=== PATIENT | male | born 1955 | race Caucasian/White ===

== ENCOUNTER 2024-05-16 07:58 | Outpatient (RCR) | payer MEDICARE, SELFPAY ==
--- NOTE | 2024-05-18 10:16 | BUOTOPEVAL ---
Assessment and note entered by Nany Lua OT Evaluation Information Assessment Status Evaluation Diagnosis S/p ORIF fracture, left distal radius routine healing ICD-10 Condition Codes (OT) M25.532 Other ICD-10 Condition Codes ( Z98.890, Z87.81 OT) Onset February 2024 Subjective Information The patient reports 5/10 pain at its worst when moving extremity and 0/10 at best. The patient reports no pain at the time of evaluation. Reported Pain Level Pain Score 0: Self Report Assessment OT Clinical Summary The patient is a 68 year old male who was referred to outpatient OT due to distal radius fracture. The patient now demonstrates minimal edema of L wrist, limited wrist flexion, decreased automation lead strength and pain in wrist during ADLs. The patient requires skilled OT to address pain, ROM, strength and edema challenges in order to improve function of L UE and return to PLOF with independence with ADLs and IADLs with no pain. Plan of Care Interventions Therapeutic Exercise,Manual Therapy,Neuro Re- education,Therapeutic Activities,Hot Pack/Cold Pack,Electrical Stimulation,Sensory Integrative Techn,Self-Care/Home Management,Ultrasound OT Services Indicated Yes Treatment Frequency and 2x/week for 10 visits. Duration These treatments will address the objective and functional deficits as defined above. The patient will be advanced safely and appropriately in order for the patient to progress towards his/her prior level of function. Additional exercises will be introduced and as well as a comprehensive home exercise program upon discharge, if needed, ?to ensure carryover of functional gains achieved in the clinic. This treatment plan has been reviewed and agreement upon by the patient.
--- NOTE | 2024-06-07 07:45 | BUOTOPDC ---
Assessment and note entered by Nany Lua OT Evaluation Information Assessment Status Discharge Diagnosis S/p ORIF fracture, left distal radius routine healing ICD-10 Condition Codes (OT) M25.532 Other ICD-10 Condition Codes ( Z98.890, Z87.81 OT) Onset February 2024 Subjective Information The patient reports 0/10 pain in wrist at the time of discharge. He reports that at times he will have sharp pain in thumb when pulled back but goes away quickly. He reports it does not bother him very much and has no numbness or tingling. He reports he has no issues performing all ADLs and IADLs. He demonstrates good progress toward goals and understanding of HEP. Reported Pain Level Pain Score 0: Self Report Pain Score 0: Self Report Pain Score 0: Self Report Pain Score 0: Self Report Assessment OT Clinical Summary The patient demonstrates significant progress in wrist ROM, edema, pain, UE HEP knowledge and demonstration, and ward secretary strength that have made all ADLs and IADLs easier with no discomfort. He performs all ADLs with independence and does not demonstrate difficulty with limited ROM or strength of L UE. The patient has reported pain in L thumb at times when it is pulled back, therapist educated the patient on pain management techniques and bracing options if needed. Due to patient reporting that it does not bother him, therapist not to address at this time. The patient demonstrates significant progress in function scoring 2.3% on QuickDASH questionnaire at discharge. The patient is discharged this date due to meeting goals. Plan of Care Interventions Therapeutic Exercise,Manual Therapy,Neuro Re- education,Therapeutic Activities,Hot Pack/Cold Pack,Electrical Stimulation,Sensory Integrative Techn,Self-Care/Home Management,Ultrasound OT Services Indicated No Treatment Frequency and 2x/week for 10 visits. Duration
== END 2024-06-06 09:17 | disposition home or self-care (01) ==
LOC: CHSOT 07:58
PROVIDERS: PCP Family Medicine
DX: S52.572D Other intraarticular fracture of lower end of left radius, subsequent encounter for closed fracture with routine healing (principal); Z98.890 Other specified postprocedural states; Z87.81 Personal history of (healed) traumatic fracture
CPT/HCPCS: 97110; 97140; 97165; 97530

== ENCOUNTER 2024-05-31 12:44 | Outpatient (CLI) | payer MEDICARE, SELFPAY ==
--- NOTE | ~2024-05-31 | XR_ITS ---
3 VIEWS LUMBAR SPINE Ordering provider: Lyle Padilla, History: . low back pain into LT hip, hx stepped on by horse X 3 yrs . Comparison: None. FINDINGS: VERTEBRAL BODIES: Old compression fractures of T12 and L1. No dislocation. 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 DISK SPACES: Narrowing of the disc T12-L1. SOFT TISSUES: Aortic calcification. IMPRESSION: No acute osseous abnormality lumbar spine. Old compression fracture of T12 and L1. Spondylolysis with spondylolisthesis at the level of L5-S1. Reviewed, dictated and finalized at location A.
== END 2024-05-31 12:45 | disposition home or self-care (01) ==
LOC: CHSIMG 12:46
PROVIDERS: PCP Family Medicine; Visit Provider Family Medicine
DX: M54.50 Low back pain, unspecified (principal); M43.06 Spondylolysis, lumbar region
CPT/HCPCS: 72100

== ENCOUNTER 2025-10-02 12:03 | Outpatient (CLI) | payer MEDICARE, SELFPAY ==
--- NOTE | ~2025-10-02 | XR_ITS ---
EXAMINATION: XR hip LT min 2V, 10/02/2025 12:15 [facility] HISTORY: Chronic L Hip Pain COMPARISON: No comparisons available. Findings: No acute fracture or malalignment. No significant degenerative changes. Soft tissues unremarkable. Impression: No acute fracture or malalignment. Reviewed, dictated and finalized at location [facility] Impression: No acute fracture or malalignment.
== END 2025-10-02 12:04 | disposition home or self-care (01) ==
LOC: CHSIMG 12:08
PROVIDERS: PCP Family Medicine; Visit Provider Family Medicine
DX: M25.552 Pain in left hip (principal)
CPT/HCPCS: 73502